=== PATIENT | female | born 1945 | race Asian ===

== ENCOUNTER → 2018-09-22 | Outpatient (CLI) | payer MEDICARE, OTHER | END | disposition home or self-care (01) | LOC: RAD 10:59 | DX: M25.561 Pain in right knee (principal) | CPT/HCPCS: 73560 ==

== ENCOUNTER → 2019-03-26 | Outpatient (CLI) | payer MEDICARE, OTHER | END | disposition home or self-care (01) | LOC: RAD 14:05 | DX: M25.552 Pain in left hip (principal) | CPT/HCPCS: 72170; 73510; 73522 ==